=== PATIENT | female | born 1995 | race Caucasian/White ===

== ENCOUNTER 2019-07-23 08:26 | Emergency (ER) | payer MEDICAID ==
[~2019-07-23] VITALS: Ht 162.6 cm; Wt 64.5 kg
[2019-07-23 08:28] VITALS: BP 138/95
[2019-07-23] MEDS ORDERED: ACETAMINOPHEN 325 MG TABLET ONE (09:37)
[2019-07-23] MEDS ORDERED: IBUPROFEN 600 MG TABLET ONE (09:37)
--- NOTE | 2019-07-23 09:49 | NUR ---
FLORI WRAP APPLIED , PT MEDICATED PER EMAR, TOLERATED WELL. PT GIVEN DC INSTRUCTIONS AND SCRIPT, EDUCATED REGARDING DC RX FOR NAPROXEN. PT AMB TO DC DESK WITH STEADY GAIT, ALL QUESTIONS ANSWERED.
[2019-07-23] MEDS ORDERED: ACETAMINOPHEN 325 MG TABLET PO ONE (10:00)
[2019-07-23] MEDS ORDERED: IBUPROFEN 600 MG TABLET PO ONE (10:00)
== END 2019-07-23 09:47 | disposition home or self-care (01) ==
LOC: ED 09:40
DX: S90.32XA Contusion of left foot, initial encounter (principal); X58.XXXA Exposure to other specified factors, initial encounter; Y93.89 Activity, other specified; Y92.009 Unspecified place in unspecified non-institutional (private) residence as the place of occurrence of the external cause; Y99.8 Other external cause status
CPT/HCPCS: 99283